=== PATIENT | male | born 1995 | race Caucasian/White ===

== ENCOUNTER 2016-06-11 12:08 | Day surgery (SDC) | payer OTHER ==
[~2016-06-11] VITALS: Ht 170.2 cm; Wt 67.7 kg
[2016-06-11] VITALS (9 sets, daily range): BP systolic 117–129; BP diastolic 46–68; PULSE 72–82; RESP 16–22; Ht 170.2 cm; Wt 67.7 kg
[~2016-06-11 12:08] MED LIST: LACTATED RINGER'S 1,000 ML IV* SCH; LIDOCAINE 2% (SDV) 5 ML INJ ONE; PROPOFOL 200 MG INJ ONE; SUCCINYLCHOLINE CHLORIDE 100 MG/5 ML SYG IV ONE; metroNIDAZOLE 500 MG/100 ML NS IVPB ONE; metroNIDAZOLE 500 MG/NS (PMX) 100 ML IVPB ONE
--- NOTE | 2016-06-11 13:59 | HPN ---
Date/Time of Note Date/Time of Note DATE: 06/11/16 TIME: 13:59 Interval H&P Admission Note Pt. seen H&P reviewed: No system changes REMIGIO RUTHERFORD M.D. Jun 11, 2016 13:59
[2016-06-11] MEDS ORDERED: FENTAnyl 50 MCG/ML VIAL ONE (14:05)
[2016-06-11] MEDS ORDERED: BUPIVACAINE 0.5%/EPI (SDV) 30 ML INJ ONE (14:15)
[2016-06-11] MEDS ORDERED: LIDOCAINE 1% (MPF) 30 ML INJ ONE (14:15)
[2016-06-11] MEDS ORDERED: IBUP200C11 PO (14:41)
--- NOTE | 2016-06-11 14:43 | PDOCDIS ---
Discharge Instructions CONDITION Patient Condition: Good HOME CARE INSTRUCTIONS: Diet Instructions: RegularSpecial Diet: high fiber ACTIVITY: Activity Restrictions: No Restrictions Bathing Restrictions: Tub Bath FOLLOW UP/APPOINTMENTS Appointments With me in one week, with Dr. Bonilla as scheduled SCHOOL/WORK RELEASE May return to School/Work on: Jun 12, 2016 School/Work Release Comment: OK for work/school if feeling well, pain controlled REMIGIO RUTHERFORD M.D. Jun 11, 2016 14:43
[2016-06-11] MEDS ORDERED: METOCLOPRAMIDE 10 MG INJ IV PRN (15:00)
[2016-06-11] MEDS ORDERED: FENTAnyl 50 MCG/ML VIAL IV PRN ×2 (15:00)
[2016-06-11] MEDS ORDERED: DIPHENHYDRAMINE 50 MG INJ IV PRN (15:00)
[2016-06-11] MEDS ORDERED: HYDROmorphONE (0.2 MG/ML) 10ML SYG IV PRN ×3 (15:00)
[2016-06-11] MEDS ORDERED: MEPERIDINE 25 MG INJ IV PRN (15:00)
[2016-06-11] MEDS ORDERED: ONDANSETRON 4 MG INJ IV PRN (15:00)
--- NOTE | 2016-06-11 18:58 | OPR ---
DATE OF OPERATION: 06/11/2016 PROCEDURE PERFORMED: Proctosigmoidoscopy, biopsy and examination under anesthesia. 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 SURGEON: Remigio Jacob MD ANESTHESIA: General endotracheal anesthesia. POSITION: Prone. ESTIMATED BLOOD LOSS: Minimal. FINDINGS: 1. No inflammation seen in the rectum. 2. Localized granulation, inflammation in anterior midline anal canal. No evidence of fistula. INDICATIONS FOR PROCEDURE: A 20-year-old man who had a fistulotomy in [place] approximately 1 year ago. The patient since had had an I and D in March. When I saw the patient in the office, the patient reported no pain. In the office, the patient had a well-healed fistulotomy scar in the left anterior perianal skin with what appeared to be granulation in the anterior midline anal canal. The patient could not tolerate the much of the procedure in the office, so I discussed with the patient and the family an examination under anesthesia with proctosigmoidoscopy, possible fistulotomy, possible Seton. I had received a note from the patient's doctor in [place] stating that when they did the original operation, the fistula appeared very Crohn's like with large tags, etc. and should be worked up for a Crohn's disease. I had sent the patient for GI evaluation, and Dr. Bonilla saw the patient and is about to do an endoscopy and blood work to rule out Crohn's. So in the meantime, I was going to do an EUA to see if there is inflammation in the rectum and start localized treatment if necessary and also examine the fistula to see if there is any sign of recurrence. PROCEDURE IN DETAIL: After obtaining consent, the patient was brought to the operating room. After induction of anesthesia, the patient was gently placed in the prone position. Pressure points carefully padded. SCDs were applied. The patient was prepped and draped in the usual sterile fashion. I began by doing a digital rectal exam which was significant for some mild scarring in the anterior midline anal canal. I could see some scar tissue in the left anterior perianal skin and also what appeared to be a healed external opening fistula over the sacrum, possible old pilonidal? I then placed a lubricated rigid sigmoidoscope in the patient's anus and navigated it to approximately 15 cm from the anal verge. I carefully examined the rectal mucosa which appeared completely normal. I then removed the scope and did a perianal block using 0.5% Marcaine with epinephrine. Then using a Tinsley retractor, I examined all 4 quadrants of the anal canal. It was only significant for what appeared to be scar and granulation tissue in the anterior midline anal canal. There were 3 tags in this area which I removed with cautery and sent for pathology. Hemostasis was achieved. There did not appear to be a recurrent fistula, as I tried to probe the wound and also the distal end of the scarring. There did not appear to be any other surgical measures to be taken, so I placed some Surgicel and ended the procedure. The patient tolerated the procedure well. The patient was extubated in the OR and transported to the PACU in good condition. I have given instructions to the patient and the patient's mother on postop care, and he should see me within a week. The patient should also see Dr. Bonilla soon to do his workup. Dictated By: REMIGIO RENEE/MANDY Conf#: [id number] DID#: [id number] CC: OPAL BONILLA MD;*EndCC* MTDD
== END 2016-06-11 17:00 | disposition home or self-care (01) ==
LOC: SDS 12:08 → EDBD 13:30 → SDS 17:00
PROVIDERS: ATTEND Surgery
DX: K60.3 Anal fistula (principal)
CPT/HCPCS: 45305; 88304; J0330; J1170; J2405; J3010; Z7512; Z7610

== ENCOUNTER 2016-08-03 07:18 | Day surgery (SDC) | payer OTHER ==
[~2016-08-03] VITALS: Ht 167.6 cm; Wt 67.2 kg
[~2016-08-03 07:18] MED LIST changes: +IBUP200C11 PO; -LACTATED RINGER'S 1,000 ML IV* SCH; -LIDOCAINE 2% (SDV) 5 ML INJ ONE; -PROPOFOL 200 MG INJ ONE; -SUCCINYLCHOLINE CHLORIDE 100 MG/5 ML SYG IV ONE; -metroNIDAZOLE 500 MG/100 ML NS IVPB ONE; -metroNIDAZOLE 500 MG/NS (PMX) 100 ML IVPB ONE
[2016-08-03 08:12] VITALS: Ht 167.6 cm; Wt 67.2 kg
[2016-08-03] MEDS ORDERED: FENTAnyl 50 MCG/ML VIAL ONE (08:29)
[2016-08-03] MEDS ORDERED: PROPOFOL 20 ML ONE (08:29)
[2016-08-03] MEDS ORDERED: MIDAZOLAM 1 MG/ML 2 ML INJ ONE (08:29)
[2016-08-03 08:34] VITALS: BP 122/64; PULSE 62; RESP 18
--- NOTE | 2016-08-03 10:03 | GILP ---
DATE OF PROCEDURE: 08/03/2016 PROCEDURE: Colonoscopy. PREOPERATIVE DIAGNOSIS: The patient has history of surgery for perianal abscess twice and at this t rafaela procedure requested to rule out colon carcinoma. The patient's father also had a history of col on cancer, rule out colorectal neoplasm. POSTOPERATIVE DIAGNOSES: Perianal induration and ulcer noted just below the anus. The colon appeared normal. Random biopsies were obtained to rule out inflammatory bowel disease or microscopic colitis. DESCRIPTION OF PROCEDURE: After the informed written consent was obtained, the patient was asked to lie on the left lateral side. Intravenous anesthesia was given by anesthesiologist, Dr. Sauceda . When the patient became somnolent, the Olympus video colonoscope was introduced into the rectum. Before introducing the scope the perianal examination was performed. There is evidence of ulcer no evelyn just below the anus. There is about 2 x 1 cm area of induration noted and erythema noted in thi s area as well. Scope was advanced all the way to the cecum. Entire colon appeared normal. Random biopsies were obtained to rule out microscopic colitis. Rectal biopsies also were obtained tamica hodges to rule out inflammatory bowel disease. Scope at this time was withdrawn and the procedure was terminated. PLAN: Recommend Anusol-HC cream to the anus outside to be applied 3 times a day and see the colorec stephanie surgeon. Dictated By: OPAL WILKINS MD NC/NTS Conf#: [id number] DID#: [id number] CC: OPAL WILKINS MD; VANGIE BARCLAY MD;*EndCC*
== END 2016-08-03 12:02 | disposition home or self-care (01) ==
LOC: GIL 07:18
PROVIDERS: ATTEND Internal Medicine Gastroenterology
DX: K62.6 Ulcer of anus and rectum (principal)
CPT/HCPCS: 45378; 88305; J2250; J3010; Z7610